=== PATIENT | male | born 1995 | race Caucasian/White ===

== ENCOUNTER 2017-04-29 14:00 | Emergency (ER) | payer OTHER ==
[~2017-04-29] VITALS: Ht 180.3 cm; Wt 90.4 kg
[2017-04-29 14:12] VITALS: BP 147/97
[2017-04-29] MEDS ORDERED: KETOROLAC 30 MG/ML VIAL IVP ONE (14:45)
[2017-04-29] MEDS ORDERED: CLINDAMYCIN 600 MG in DEXTROSE 5% 50 ML IV ONE (14:45)
[2017-04-29] MEDS ORDERED: NACL 0.9% 1,000 ML IV SCH (14:45)
[2017-04-29 15:14] LABS: HEMATOCRIT 46.2 % (36-52); HEMOGLOBIN 15.3 g/dL (12.0-18.0); MEAN CORPUSCULAR HEMOGLOBIN 29 pg (27-31); MEAN CORPUSCULAR HGB CONC 33 g/dL (33-37); MEAN CORPUSCULAR VOLUME 88 fL (80-94); PLATELET COUNT (AUTO) 263 K/uL (140-450); RED BLOOD CELL COUNT(AUTO) 5.26 MIL/uL (4.20-6.10); RED CELL DISTRIBUTION WIDTH 12.1 % (11.6-13.7)
[2017-04-29] MEDS ORDERED: CLINDAMYCIN 600 MG/4 ML VIAL ONE (15:17)
[2017-04-29 15:28] LABS: ANION GAP 12.8 (8-16); CARBON DIOXIDE 28.6 mmol/L (21-32); POTASSIUM 3.4 mmol/L (3.5-5.1)
[2017-04-29 15:31] LABS: LYMPHOCYTES % (MANUAL) 14 % (20-46); MONOCYTES % (MANUAL) 5 % (5-12)
[2017-04-29 15:34] LABS: ALBUMIN 3.7 g/dL (3.4-5.0); TOTAL BILIRUBIN 0.6 mg/dL (0.0-1.0)
[2017-04-29 17:53] VITALS: BP 137/77
== END 2017-04-29 17:53 | disposition short-term general hospital (02) ==
LOC: MED 14:00
DX: H70.002 Acute mastoiditis without complications, left ear (principal); D72.829 Elevated white blood cell count, unspecified
CPT/HCPCS: 36415; 70491; 80053; 83605; 85025; 85610; 85730; 87040; 90471; 90715; 96365; 96374; 99285; J1885; J3490; J7030; Q9967